=== PATIENT | female | born 1960 | race Caucasian/White ===

== ENCOUNTER → 2016-11-22 | Outpatient (CLI) | payer OTHER ==
[~2016-11-22] MED LIST: ASPI81TA85 PO; CITRTAB19 PO; FIBE625T PO; FISH5CAP PO; VITA100066 PO
--- NOTE | 2016-11-22 12:07 | REPMRS ---
Patient History The patient states she had a clinical breast exam in 11/2016. Patient is postmenopausal and is nulliparous. Family history of colorectal cancer in father at age 74 and colorectal cancer in mother at age 60. Benign core biopsy of the left breast. Took hormonal contraceptives for 4 years. Digital Woman Screen Mammo: November 22, 2016 - Exam #: [id number] Bilateral CC and MLO view(s) were taken. Technologist: Chaya Walter Technologist Prior study comparison: November 17, 2015, digital woman screen mammo performed at [facility]. November 11, 2014, digital woman screen mammo performed at [facility] [employer] [facility]. FINDINGS: The breast tissue is heterogeneously dense. This may lower the sensitivity of mammography. There has been no change in the appearance of the mammogram from the prior studies. There is a moderate amount of residual fibroglandular tissue which is fairly symmetric. There is no interval development of dominant mass, architectural distortion, or clustered microcalcification typical of malignancy. Two stereo clips again seen in the left UOQ, unchanged. There are scattered, small, benign calcifications of doubtful clinical significance. Scattered lymph nodes are seen in the axillae. No significant changes when compared with prior studies. ASSESSMENT: BI-RADS/ACR category 2 mammogram. Benign finding(s). Recommendation Routine screening mammogram in 1 year (for women over age 40). This mammogram was interpreted with the aid of an FDA-approved computer-aided dectection system. A. Negative x-ray reports should not delay biopsy if a dominant or clinically suspicious mass is present. B. Four to eight percent of cancers are not identified by mammography. C. Adenosis and dense breast may obscure an underlying neoplasm. Electronically Signed By: John Gallardo MD 11/22/16 [id number]
== END ==
LOC: M WHC 10:19
PROVIDERS: ATTEND Obstetrics & Gynecology
DX: Z12.31 Encounter for screening mammogram for malignant neoplasm of breast (principal); Z78.0 Asymptomatic menopausal state; Z92.0 Personal history of contraception; Z92.89 Personal history of other medical treatment

== ENCOUNTER → 2017-12-05 | Outpatient (CLI) | payer OTHER | LOC: M WHC 10:25 | DX: Z12.31 Encounter for screening mammogram for malignant neoplasm of breast (principal); N60.31 Fibrosclerosis of right breast; N60.32 Fibrosclerosis of left breast | CPT/HCPCS: 77067 ==

== ENCOUNTER → 2018-01-23 | Outpatient (REF) | payer OTHER | LOC: M LAB REF 16:56 | DX: J02.9 Acute pharyngitis, unspecified (principal) ==

== ENCOUNTER → 2018-12-10 | Outpatient (CLI) | payer BC ==
--- NOTE | 2018-12-10 09:32 | REPMRS ---
Patient History The patient states she had a clinical breast exam in 11/2018. Patient is postmenopausal and is nulliparous. Family history of colorectal cancer at age 60 in mother, colorectal cancer at age 74 in father, breast cancer at age 50 or over in sister, breast cancer at age 68 in paternal cousin, breast cancer at age 67 in paternal cousin. Benign core biopsy of the left breast. Took hormonal contraceptives for 4 years. Digital Woman Screen Mammo: December 10, 2018 - Exam #: [id number] Bilateral CC and MLO view(s) were taken. Technologist: Destiny Patterson, Technologist Prior study comparison: December 05, 2017, bilateral digital woman screen mammo performed at [facility]. November 22, 2016, digital woman screen mammo performed at [facility]. November 17, 2015, digital woman screen mammo performed at [facility]. FINDINGS: The breast tissue is heterogeneously dense. This may lower the sensitivity of mammography. There is a moderate amount of heterogeneously dense fibroglandular tissue which is fairly symmetric. There are too needle biopsy marker clips projecting in the upper outer quadrant of the left breast again noted. There is no interval development of dominant mass, architectural distortion, or grouped microcalcification typical of malignancy. There has been no change in the appearance of the mammogram from the prior studies. 3-D tomosynthesis shows no additional findings. Assessment: BI-RADS/ACR category 2 mammogram. Benign Findings. Recommendation Routine screening mammogram of both breasts in 1 year (for women over age 40). This patient's Lifetime Breast Cancer RIsk is estimated at 16.6 %. This mammogram was interpreted with the aid of an FDA-approved computer-aided dectection system. Electronically Signed By: Omar Graves MD 12/10/18 0932
== END ==
LOC: M WHC 07:03
PROVIDERS: ATTEND Obstetrics & Gynecology
DX: Z12.31 Encounter for screening mammogram for malignant neoplasm of breast (principal); Z78.0 Asymptomatic menopausal state; Z80.0 Family history of malignant neoplasm of digestive organs; Z80.3 Family history of malignant neoplasm of breast; Z92.0 Personal history of contraception

== ENCOUNTER → 2022-05-15 | Outpatient (CLI) | payer BC, OTHER ==
[~2022-05-15] MED LIST changes: -ASPI81TA85 PO; +ASPI81TA86 PO; +CITRTAB18 PO; +OMEG10002 PO; +QC F0.52 PO; +VITA100093 PO
== END ==
LOC: M LABSMTC 11:22
PROVIDERS: ATTEND Anesthesiology
DX: Z01.818 Encounter for other preprocedural examination (principal); Z11.52 Encounter for screening for COVID-19

== ENCOUNTER 2022-05-20 09:38 | Day surgery (SDC) | payer BC ==
[~2022-05-20] VITALS: Ht 165.1 cm; Wt 63.4 kg
[~2022-05-20 09:38] MED LIST changes: +NS 1,000 ML IV ONE
[2022-05-20] MEDS ORDERED: propofoL 200 MG/20 ML VIAL As Ordered ONE (11:55)
[2022-05-20 12:30] VITALS: BP 159/82
== END 2022-05-20 12:32 | disposition home or self-care (01) ==
LOC: M OPP 09:38
PROVIDERS: ATTEND Internal Medicine Gastroenterology
DX: Z12.11 Encounter for screening for malignant neoplasm of colon (principal); Z80.0 Family history of malignant neoplasm of digestive organs; K57.30 Diverticulosis of large intestine without perforation or abscess without bleeding; K64.8 Other hemorrhoids; Z87.442 Personal history of urinary calculi; Z88.1 Allergy status to other antibiotic agents